=== PATIENT | male | born 1975 | race Caucasian/White ===

== ENCOUNTER 2019-07-29 18:00 | Inpatient (IN) | payer MEDICAID ==
[2019-07-29] MEDS ORDERED: MVI, Adult with Vitamin K 10 ML, Thiamine 100 MG, Folic Acid 1 MG in Lactated Ringers 1... IV ONE ×4 (18:43)
[2019-07-29] MEDS ORDERED: LORazepam 2 MG/ML Syringe IVPUSH ONE ×2 (18:43→19:58)
[2019-07-29] MEDS ORDERED: Ondansetron 4 MG/2 ML SDV IV ONE (18:43)
[2019-07-29 19:19] LABS: ANION GAP 17.4; CHLORIDE,CL 101 mmol/L (101-111); SODIUM,NA 139 mmol/L (135-145)
[2019-07-29 19:21] LABS: ACETAMINOPHEN < 10.0 ug/mL
[2019-07-29] MEDS: Sodium Chloride 0.9% 10 ML Syringe FLUSH PRN (19:24)
--- NOTE | 2019-07-29 19:53 | EDM.PDOC ---
ED HPI GENERAL MEDICAL PROBLEM - General Chief Complaint: Drug or Alcohol Abuse Stated Complaint: DETOX Time Seen by Provider: 07/29/19 19:35 Source of Information: Reports: Patient History Limitations: Reports: No Limitations - History of Present Illness INITIAL COMMENTS - FREE TEXT/NARRATIVE: This 44 yo male patient reports to the ED due to drinking 1/2 liter of Vodka for the past month plus. The patient reports he did talk to his property disposal officer regarding his drinking problem and was sent to the ED. The patient reports he would like help with stopping and would like to go to treatment. The patient reports he has increased anxiety at this time. The patient was given 1 mg of Ativan prior to assessment. The patient reports he has increased blood pressure while he goes through withdrawal. The patient reports he took a large drink of Vodka on the way to the ED. The patient reports he had not had a drink for about 12 hours prior to that. The patient reports he has not had any food for the past 48 hours. The patient was seen in [place] last month with similar symptoms, but did not follow-up with treatment or take his medications after discharge. Onset: Unknown/Unsure Duration: Constant Location: Reports: Generalized Quality: Reports: Other Severity: Moderate Improves with: Reports: None Worsens with: Reports: None Context: Reports: Other Associated Symptoms: Reports: No Other Symptoms - Related Data Allergies Allergy/AdvReac Type Severity Reaction Status Date / Time codeine Allergy Rash Verified 07/29/19 18:25 naproxen sodium [From Aleve] Allergy Airway Verified 07/29/19 18:25 Tightness Home Meds: Home Meds Metoprolol Succinate 100 mg PO DAILY 07/29/19 [History] Past Medical History Other HEENT History: blind in right eye Cardiovascular History: Reports: Hypertension Other Musculoskeletal History: right hand, both knees, - Past Surgical History Musculoskeletal Surgical History: Reports: Arthroscopic Knee, Other (See Below) Other Musculoskeletal Surgeries/Procedures:: back surgery Social & Family History - Family History Family Medical History: Noncontributory - Tobacco Use Smoking Status *Q: Current Every Day Smoker Years of Tobacco use: 30 Packs/Tins Daily: 0.5 Used Tobacco, but Quit: No Second Hand Smoke Exposure: Yes - Caffeine Use Caffeine Use: Reports: None - Recreational Drug Use Recreational Drug Use: No ED ROS GENERAL - Review of Systems Review Of Systems: ROS reveals no pertinent complaints other than HPI. ED EXAM, GENERAL - Physical Exam Exam: See Below Exam Limited By: No Limitations General Appearance: Alert, WD/WN, Moderate Distress Eye Exam: Bilateral Eye: EOMI, Normal Inspection, PERRL Ears: Normal External Exam, Normal Canal, Hearing Grossly Normal, Normal TMs Nose: Normal Inspection, Normal Mucosa, No Blood Throat/Mouth: Normal Inspection, Normal Lips, Normal Teeth, Normal Gums, Normal Oropharynx, Normal Voice, No Airway Compromise Head: Atraumatic, Normocephalic Neck: Normal Inspection, Supple, Non-Tender, Full Range of Motion Cardiovascular: Normal Peripheral Pulses, Regular Rate, Rhythm, No Edema, No Gallop, No JVD, No Murmur, No Rub GI/Abdominal: Normal Bowel Sounds, Soft, Non-Tender, No Organomegaly, No Distention, No Abnormal Bruit, No Mass (Male) Exam: Deferred Rectal (Males) Exam: Deferred Back Exam: Normal Inspection, Full Range of Motion, NT Extremities: Normal Inspection, Normal Range of Motion, Non-Tender, Normal Capillary Refill, No Pedal Edema Neurological: Alert, Oriented, CN II-XII Intact, Normal Cognition, Normal Gait, Normal Reflexes, No Motor/Sensory Deficits Psychiatric: Normal Affect, Normal Mood Skin Exam: Warm, Dry, Intact, Normal Color, No Rash Lymphatic: No Adenopathy Course - Vital Signs Last Recorded V/S: Last Vital Signs Temp 37.2 C 07/29/19 18:08 Pulse 120 H 07/29/19 18:08 Resp 18 07/29/19 18:08 BP 176/113 H 07/29/19 18:08 Pulse Ox 94 L 07/29/19 18:08 - Orders/Labs/Meds Orders: Active Orders 24 hr Category Date Time Status Peripheral IV Care [RC] . DIRECTED Care 07/29/19 18:43 Active Sodium Chloride 0.9% [Saline Flush] Med 07/29/19 18:42 Active 10 ml FLUSH ASDIRECTED PRN Peripheral IV Insertion Adult [OM.PC] Stat Oth 07/29/19 18:42 Ordered Medication Orders Sodium Chloride (Saline Flush) 10 ml FLUSH ASDIRECTED PRN PRN Reason: Keep Vein Open Last Admin: 07/29/19 19:24 Dose: 10 ml Labs: Laboratory Tests 07/29/19 07/29/19 07/29/19 Range/Units 18:52 18:52 18:52 WBC 6.6 (5.0-10.0) 10^3/uL RBC 4.65 (4.6-6.2) 10^6/uL Hgb 15.6 (14.0-18.0) g/dL Hct 44.7 (40.0-54.0) % MCV 96.1 (80-100) fL MCH 33.5 (27.0-34.0) pg MCHC 34.9 (33.0-35.0) g/dL Plt Count 214 (150-450) 10^3/uL Neut % (Auto) 54.2 (42.2-75.2) % Lymph % (Auto) 37.0 (20.5-50.1) % [place] % (Auto) 7.7 (2-8) % Eos % (Auto) 0.8 L (1.0-3.0) % Baso % (Auto) 0.3 (0.0-1.0) % Sodium 139 (135-145) mmol/L Potassium 3.4 L (3.6-5.0) mmol/L Chloride 101 (101-111) mmol/L Carbon Dioxide 24.0 (21.0-31.0) mmol/L Anion Gap 17.4 BUN 18 (7-18) mg/dL Creatinine 0.7 (0.6-1.3) mg/dL Est Cr Clr Drug Dosing TNP Estimated GFR (MDRD) > 60 BUN/Creatinine Ratio 25.71 Glucose 99 (74-105) mg/dL Calcium 8.4 (8.4-10.2) mg/dl Magnesium 2.0 (1.8-2.5) mg/dL Total Bilirubin 0.7 (0.2-1.0) mg/dL AST 121 H (10-42) IU/L ALT 77 H (10-60) IU/L Alkaline Phosphatase 91 (42-121) IU/L Total Protein 8.1 (6.7-8.2) g/dl Albumin 4.3 (3.2-5.5) g/dl Globulin 3.8 Albumin/Globulin Ratio 1.13 TSH, Ultra Sensitive 2.13 (0.45-5.33) uIu/mL Urine Color (YELLOW) Urine Appearance (CLEAR) Urine pH (5.0-9.0) Ur Specific [place] (1.005-1.030) Urine Protein (NEGATIVE) Urine Glucose (UA) (NEGATIVE) Urine Ketones (NEGATIVE) Urine Occult Blood (NEGATIVE) Urine Nitrite (NEGATIVE) Urine Bilirubin (NEGATIVE) Urine Urobilinogen (0.2-1.0) mg/dL Ur Leukocyte Esterase (NEGATIVE) Urine RBC /HPF Urine WBC (0-5/HPF) /HPF Ur Epithelial Cells (NOT SEEN) /HPF Urine Bacteria (0-FEW/HPF) /HPF Salicylates < 4.0 mg/dL Urine Opiates Screen (NEGATIVE) Ur Oxycodone Screen (NEGATIVE) Urine Methadone Screen (NEGATIVE) Acetaminophen < 10.0 ug/mL Ur Barbiturates Screen (NEGATIVE) U Tricyclic Antidepress (NEGATIVE) Ur Phencyclidine Scrn (NEGATIVE) Ur Amphetamine Screen (NEGATIVE) U Methamphetamines Scrn (NEGATIVE) Urine MDMA Screen (NEGATIVE) U Benzodiazepines Scrn (NEGATIVE) Urine Cocaine Screen (NEGATIVE) U Marijuana (THC) Screen (NEGATIVE) Ethyl Alcohol 412 mg/dL 07/29/19 07/29/19 Range/Units 19:19 19:19 WBC (5.0-10.0) 10^3/uL RBC (4.6-6.2) 10^6/uL Hgb (14.0-18.0) g/dL Hct (40.0-54.0) % MCV (80-100) fL MCH (27.0-34.0) pg MCHC (33.0-35.0) g/dL Plt Count (150-450) 10^3/uL Neut % (Auto) (42.2-75.2) % Lymph % (Auto) (20.5-50.1) % [place] % (Auto) (2-8) % Eos % (Auto) (1.0-3.0) % Baso % (Auto) (0.0-1.0) % Sodium (135-145) mmol/L Potassium (3.6-5.0) mmol/L Chloride (101-111) mmol/L Carbon Dioxide (21.0-31.0) mmol/L Anion Gap BUN (7-18) mg/dL Creatinine (0.6-1.3) mg/dL Est Cr Clr Drug Dosing Estimated GFR (MDRD) BUN/Creatinine Ratio Glucose (74-105) mg/dL Calcium (8.4-10.2) mg/dl Magnesium (1.8-2.5) mg/dL Total Bilirubin (0.2-1.0) mg/dL AST (10-42) IU/L ALT (10-60) IU/L Alkaline Phosphatase (42-121) IU/L Total Protein (6.7-8.2) g/dl Albumin (3.2-5.5) g/dl Globulin Albumin/Globulin Ratio TSH, Ultra Sensitive (0.45-5.33) uIu/mL Urine Color Yellow (YELLOW) Urine Appearance Clear (CLEAR) Urine pH 5.5 (5.0-9.0) Ur Specific [place] 1.025 (1.005-1.030) Urine Protein 30 H (NEGATIVE) Urine Glucose (UA) Negative (NEGATIVE) Urine Ketones Trace H (NEGATIVE) Urine Occult Blood Trace-intact H (NEGATIVE) Urine Nitrite Negative (NEGATIVE) Urine Bilirubin Negative (NEGATIVE) Urine Urobilinogen 0.2 (0.2-1.0) mg/dL Ur Leukocyte Esterase Negative (NEGATIVE) Urine RBC 0-5 /HPF Urine WBC 0-5 (0-5/HPF) /HPF Ur Epithelial Cells Few (NOT SEEN) /HPF Urine Bacteria Rare (0-FEW/HPF) /HPF Salicylates mg/dL Urine Opiates Screen Negative (NEGATIVE) Ur Oxycodone Screen Negative (NEGATIVE) Urine Methadone Screen Negative (NEGATIVE) Acetaminophen ug/mL Ur Barbiturates Screen Negative (NEGATIVE) U Tricyclic Antidepress Negative (NEGATIVE) Ur Phencyclidine Scrn Negative (NEGATIVE) Ur Amphetamine Screen Negative (NEGATIVE) U Methamphetamines Scrn Positive H (NEGATIVE) Urine MDMA Screen Negative (NEGATIVE) U Benzodiazepines Scrn Negative (NEGATIVE) Urine Cocaine Screen Negative (NEGATIVE) U Marijuana (THC) Screen Negative (NEGATIVE) Ethyl Alcohol mg/dL Meds: Medications Generic Name Dose Route Start Last Admin Trade Name Freq PRN Reason Stop Dose Admin Sodium Chloride 10 ml 07/29/19 18:42 07/29/19 19:24 Saline Flush FLUSH 10 ml ASDIRECTED PRN Administration Keep Vein Open Discontinued Medications Generic Name Dose Route Start Last Admin Trade Name Freq PRN Reason Stop Dose Admin Multivitamins/Minerals 10 ml/ 1,011.2 mls @ 999 mls/hr 07/29/19 18:43 19:23 Thiamine HCl 100 mg/ Folic IV 07/29/19 19:43 999 mls/hr Acid 1 mg/ Lactated Ringer's .BOLUS ONE Administration Lorazepam 2 mg 07/29/19 18:43 07/29/19 19:16 Ativan IVPUSH 07/29/19 18:44 2 mg ONETIME ONE Administration Lorazepam 1 mg 07/29/19 19:58 Ativan IVPUSH 07/29/19 19:59 ONETIME ONE Ondansetron HCl 4 mg 07/29/19 18:43 07/29/19 19:09 Zofran IV 07/29/19 18:44 4 mg ONETIME ONE Administration Departure - Departure Time of Disposition: 20:03 Disposition: Admitted As Inpatient 66 Condition: Fair Clinical Impression: Drug abuse, Alcohol abuse, Uncontrolled hypertension - Discharge Information *PRESCRIPTION DRUG MONITORING PROGRAM REVIEWED*: Not Applicable *COPY OF PRESCRIPTION DRUG MONITORING REPORT IN PATIENT RODRIGUE: Not Applicable Care Plan Goals: Discussed the patient's history, examination, lab results and treatments with Dr. Gupta. Dr. Gupta accepted the patient for an acute admission to [facility] in [place].
[2019-07-29] MEDS ORDERED: Ondansetron 4 MG Tab.DIS PO PRN (20:48)
[2019-07-29] MEDS ORDERED: Potassium Chloride 10 MEQ Tab.ER PO ONE (20:53)
[2019-07-29] MEDS: LORazepam 2 MG/ML Syringe IVPUSH PRN (21:40)
[2019-07-29] MEDS: Sodium Chloride 0.9% 1,000 ML IV SCH (21:40)
[2019-07-29] MEDS: Thiamine 100 MG Tab PO SCH (21:45)
[2019-07-29] MEDS: Metoprolol Succinate 50 MG Tab.ER PO SCH (21:46)
[2019-07-29] MEDS: Pantoprazole 40 MG Tab.CR PO SCH (21:46)
[2019-07-29] MEDS: Multivitamins, Therapeutic with Minerals Tab PO SCH (21:46)
[2019-07-30] MEDS: LORazepam 2 MG/ML Syringe IVPUSH PRN ×9 (01:05→23:07)
--- NOTE | 2019-07-30 02:50 | HP ---
CHIEF COMPLAINT: I have been drinking a lot. HISTORY OF PRESENT ILLNESS: The patient is a 44-year-old male who was admitted through the emergency room because he has been drinking half liter of vodka for the last couple of months and he did talk to his chief diversity officer regarding his drinking and was sent to the emergency room. In the emergency room, he was evaluated. His alcohol level is 412. The patient mentioned that he is just scared about the withdrawal because his blood pressure goes up and he gets anxious when this happens. In the emergency room, he was given 1 mg of Ativan prior to assessment. He had some lab workup done, which showed elevated liver function tests and blood pressure was also elevated and alcohol level is 412 and urine tox screen showed which is positive for methamphetamine. Because of the above, he was then admitted for further evaluation and management. PAST MEDICAL HISTORY: Remarkable for alcohol abuse and alcoholism. He even admitted that he had history of seizure from withdrawal from alcohol in the past. FAMILY HISTORY: Noncontributory. SOCIAL HISTORY: The patient is a smoker about half pack per day for the last 30 years. Drinks alcohol regularly. REVIEW OF SYSTEMS: The patient complained of some mild headache, but it has gotten better, but the patient denies any fever, chills, chest pain, shortness of breath, abdominal pain, or any other complaints. ALLERGIES: Codeine and naproxen sodium. HOME MEDICATIONS: None. PHYSICAL EXAMINATION: General: The patient is alert and oriented, very pleasant, not in any acute distress. Vital Signs: Blood pressure is 176/113, pulse of 120, respiration of 18, temperature is 37.2. HEENT: Normocephalic. There are pink palpebral conjunctivae. Sclerae anicteric. No C-spine tenderness. There is some infraorbital ecchymosis on the right eye. Neck: Supple. Heart: Regular rate and rhythm. Slightly tachycardic. No rubs. No gallops. Lungs: Have diminished breath sounds on both bases, but no significant crackles. No wheezing. Abdomen: Soft. There is mild direct tenderness on the epigastric area. No rebound. Bowel sounds positive. Extremities: Negative for any gross deformities. No pedal edema. No calf tenderness. Neurologic: Negative for any lateralizing signs. LABORATORY WORKUP: CBC: WBC 6.6, hemoglobin is 15.6, hematocrit is 44.7, platelet is 212. Comp panel: Potassium is 3.4. The rest of the panel unremarkable. AST is 121, ALT is 77. The rest of the panel unremarkable. Magnesium level is 2 which is within normal limits. Urine tox screen is positive for methamphetamine. Blood alcohol level is 412. ADMITTING DIAGNOSES: 1. Alcohol intoxication/alcoholism. 2. Hypertension. 3. Hypokalemia. 4. History of seizure from alcohol withdrawal. TREATMENT PLAN: The patient is going to be admitted to General Medicine floor. He will be on DVT prophylaxis. He will be on IV fluids and potassium will be repleted. [facility] will be [facility] tomorrow for evaluation and for arrangement to a treatment facility once he stabilized. [facility] /[id number]
[2019-07-30] MEDS: Acetaminophen 325 MG Tab PO PRN (03:08)
[2019-07-30] MEDS: Sodium Chloride 0.9% 1,000 ML IV SCH ×3 (05:42→22:09)
[2019-07-30 07:14] LABS: ANION GAP 13.7; CHLORIDE,CL 100 mmol/L (101-111); SODIUM,NA 136 mmol/L (135-145)
[2019-07-30] MEDS: Folic Acid 1 MG Tab PO SCH (08:40)
[2019-07-30] MEDS: Metoprolol Succinate 50 MG Tab.ER PO SCH (08:40)
[2019-07-30] MEDS: Nicotine 14 MG/24 Hr Patch TRDERM SCH (08:41)
--- NOTE | 2019-07-30 12:53 | PN ---
DATE: 07/30/2019 SUBJECTIVE: The patient this morning is sleeping. He looks comfortable and there are no concerns noted from the nursing staff. The patient denies any chest pain or shortness of breath or abdominal pain. OBJECTIVE: Vital Signs: Blood pressure is 154/104, pulse of 78, respirations 20, temperature of 97.6. Heart: Regular rate and rhythm. Normal S1 and S2. No gallops. No rubs. Lungs: Equal bilaterally. No crackles. No wheezing. Abdomen: Soft, nontender. Bowel sounds positive. Extremities: Negative for any calf tenderness. No pedal edema. LABORATORY DATA: Lab workup this morning. CBC: WBC 5.5, hemoglobin is 13.9, hematocrit is 40.4, platelets are 179. Comp panel: Potassium is 3.7, which is now within normal limits, and calcium is 8.2. AST is 93, ALT 66 (improving). PLAN: We will continue with his present management and continue with DVT prophylaxis and [facility] will be called today regarding his alcoholism and possible transfer to a treatment center for alcohol. [facility] /[id number]
[2019-07-30] MEDS: cloNIDine 0.1 MG Tab PO SCH ×2 (13:48→20:50)
[2019-07-30] MEDS: Thiamine 100 MG Tab PO SCH (20:52)
[2019-07-30] MEDS: Multivitamins, Therapeutic with Minerals Tab PO SCH (20:52)
[2019-07-30] MEDS: Pantoprazole 40 MG Tab.CR PO SCH (20:52)
[2019-07-30] MEDS ORDERED: Metoprolol Succinate 50 MG Tab.ER PO ONE (23:22)
[2019-07-31] MEDS: LORazepam 2 MG/ML Syringe IVPUSH PRN ×11 (01:35→23:20)
[2019-07-31] MEDS: Sodium Chloride 0.9% 1,000 ML IV SCH ×3 (06:03→22:56)
[2019-07-31] MEDS: Metoprolol Succinate 50 MG Tab.ER PO SCH (08:08)
[2019-07-31] MEDS: cloNIDine 0.1 MG Tab PO SCH ×2 (08:09→21:17)
[2019-07-31] MEDS: Acetaminophen 325 MG Tab PO PRN ×2 (08:09→21:18)
[2019-07-31] MEDS: Nicotine 14 MG/24 Hr Patch TRDERM SCH (08:12)
[2019-07-31] MEDS: Folic Acid 1 MG Tab PO SCH (08:13)
[2019-07-31] MEDS ORDERED: cloNIDine 0.1 MG Tab PO ONE (11:30)
--- NOTE | 2019-07-31 11:50 | PN ---
DATE: 07/31/2019 SUBJECTIVE: The patient is doing fairly well except that blood pressure is still running moderately elevated, and we have been adjusting his blood pressure medication. We increased his Toprol-XL to 200 mg a day and also started him on clonidine 0.1 mg p.o. b.i.d. The patient denies any headache, chest pain, shortness of breath, abdominal pain, or any other complaints. OBJECTIVE: Vital Signs: Blood pressure is 152/100, pulse 71, respirations 16, and temperature of 97.9. Heart: Regular rate and rhythm. Normal S1 and S2. No gallops. No rubs. Lungs: Equal bilaterally. No crackles. No wheezing. Abdomen: Soft and nontender. Bowel sounds positive. Extremities: Negative for any pedal edema. No calf tenderness. Neurologic: Nonfocal. PLAN: We will continue with his present management. I am going to increase his clonidine to 0.2 mg b.i.d. and continue same dose of Toprol-XL. We are still awaiting input from [facility]. [facility] /[id number]
[2019-07-31] MEDS: Sodium Chloride 0.9% 10 ML Syringe FLUSH PRN (11:59)
[2019-07-31] MEDS: Pantoprazole 40 MG Tab.CR PO SCH (21:17)
[2019-07-31] MEDS: Thiamine 100 MG Tab PO SCH (21:18)
[2019-07-31] MEDS: Multivitamins, Therapeutic with Minerals Tab PO SCH (21:18)
[2019-08-01] MEDS: LORazepam 2 MG/ML Syringe IVPUSH PRN ×5 (00:18→08:27)
[2019-08-01] MEDS: Sodium Chloride 0.9% 1,000 ML IV SCH (06:53)
[2019-08-01] MEDS: cloNIDine 0.1 MG Tab PO SCH ×2 (08:33→20:01)
[2019-08-01] MEDS: Folic Acid 1 MG Tab PO SCH (08:33)
[2019-08-01] MEDS: Metoprolol Succinate 50 MG Tab.ER PO SCH (08:34)
[2019-08-01] MEDS: Nicotine 14 MG/24 Hr Patch TRDERM SCH (08:36)
[2019-08-01] MEDS: LORazepam 1 MG Tab PO PRN ×6 (10:56→23:13)
--- NOTE | 2019-08-01 13:18 | PN ---
DATE: 08/01/2019 SUBJECTIVE: The patient this morning is doing fairly well, although his CIWA score is still elevated, but the patient denies any headache, chest pain, shortness of breath, abdominal pain, or any other complaints and blood pressure has improved. OBJECTIVE: Vital Signs: Blood pressure is 146/81, pulse of 76, respiration of 18, and temperature of 96.8. Heart: Regular rate and rhythm. Normal S1 and S2. No gallops. No rubs. Lungs: Equal bilaterally. No crackles, no wheezing. Abdomen: Soft, nontender. Bowel sounds positive. Extremities: Negative for any pedal edema. No calf tenderness. PLAN: We will continue with his present management, and we will discontinue his IV fluids, and once the treatment center is ready for him, we will discharge him any time. [facility] /[id number]
[2019-08-01] MEDS: Pantoprazole 40 MG Tab.CR PO SCH (20:01)
[2019-08-01] MEDS: Multivitamins, Therapeutic with Minerals Tab PO SCH (20:01)
[2019-08-01] MEDS: Thiamine 100 MG Tab PO SCH (20:01)
[2019-08-02] MEDS: LORazepam 1 MG Tab PO PRN ×3 (02:12→08:54)
[2019-08-02] MEDS: Metoprolol Succinate 50 MG Tab.ER PO SCH (08:53)
[2019-08-02] MEDS: Folic Acid 1 MG Tab PO SCH (08:54)
[2019-08-02] MEDS: cloNIDine 0.1 MG Tab PO SCH (08:54)
--- NOTE | 2019-08-02 11:46 | PCM.DCSUM1 ---
Discharge Summary - Hospital Course Free Text/Narrative:: This is a 44 y/O M with history of Alcohol use and Hypertension and seizure disorder form alcohol withdrawn in the past, he was admitted with acute alcohol intoxication, his alcohol level was 412 and his urine tox screen also positive for Methamphetamine. He was admitted to prevent from alcohol withdrawal symptom. He is agreed to to to alcohol rehab at [place] and will be transferred today. In hospital he was placed on CIWA protocol and received Ativan as per protocol. He is doing well and he is ready to go to [place] for alcohol rehab. He feels good today, has no nausea or vomiting and tolerating diet . - Discharge Data Discharge Date: 08/02/19 Discharge Disposition: DC/Tfer to Other 70 Condition: Fair - Referral to Home Health Primary Care Physician: PCP Unobtainable - Patient Summary/Data Consults: Consultations 07/29/19 21:00 Consult to Case Management/Screener Perfumer [CONS] Routine - Patient Instructions Diet: Usual Diet as Tolerated Activity: As Tolerated Driving: May Drive Today Showering/Bathing: May Shower Notify Provider of: Fever - Discharge Plan *PRESCRIPTION DRUG MONITORING PROGRAM REVIEWED*: Not Applicable *COPY OF PRESCRIPTION DRUG MONITORING REPORT IN PATIENT RODRIGUE: Not Applicable Prescriptions/Med Rec: cloNIDine [Catapres] 0.2 mg PO BID #10 tablet Metoprolol Succinate [Toprol XL 50mg] 200 mg PO DAILY #20 tab.er Home Medications: Home Meds Folic Acid 1 mg PO DAILY tablet 08/02/19 [Rx] Metoprolol Succinate [Toprol XL 50mg] 200 mg PO DAILY #20 tab.er 08/02/19 [Rx] Multivitamins/Minerals [Vitamins and Minerals] 1 tab PO BEDTIME tablet [Rx] Nicotine [Habitrol] 14 mg TRDERM DAILY patch 08/02/19 [Rx] Ondansetron [Zofran ODT] 4 mg PO Q4H PRN tab.dis 08/02/19 [Rx] Pantoprazole [ProTONIX] 40 mg PO BEDTIME tab.cr 08/02/19 [Rx] Thiamine [Vitamin B-1] 100 mg PO BEDTIME tablet 08/02/19 [Rx] cloNIDine [Catapres] 0.2 mg PO BID #10 tablet 08/02/19 [Rx] Oxygen Therapy Mode: Room Air Patient Handouts: Alcohol Use Disorder, Hypertension Referrals: PCP,Unobtain [Primary Care Provider] - - Discharge Summary/Plan Comment DC Time >30 min.: Yes Discharge Summary/Plan Comment: This is a 44 y/O M with history of Alcoholism was admitted with severe acute intoxication with alcohol Impression and Plan: 1. Acute severe intoxication with Alcohol: -Pt has history of drinking alcohol and admitted with alcohol level of 142 -He doing well now and will be transferred today to [place] for Alcohol Rehab - General Info Date of Service: 08/02/19 Admission Dx/Problem (Free Text: Pt was seen in room doing well, No more nausea, vomiting, confusion, appetite is good and will be discharge to [place] for alcohol rehab Functional Status: Reports: Pain Controlled, Tolerating Diet, Ambulating, Urinating - Review of Systems General: Reports: Appetite (acceptable). Denies: Fever, Weakness, Chills HEENT: Denies: Eye Pain, Sinus Congestion, Visual Changes Pulmonary: Denies: Shortness of Breath, Pleuritic Chest Pain, Cough, Sputum, Wheezing Cardiovascular: Denies: Chest Pain, Dyspnea on Exertion, Edema Gastrointestinal: Denies: Abdominal Pain, Diarrhea, Nausea, Vomiting Genitourinary: Denies: Dysuria, Burning, Urgency, Flank Pain Musculoskeletal: Denies: Neck Pain, Shoulder Pain, Hand Pain Skin: Denies: Cyanosis, Jaundice, Bruising, Pruritis Neurological: Denies: Confusion, Dizziness, Seizure, Tingling, Tremors Psychiatric: Reports: No Symptoms - Patient Data Vitals - Most Recent: Last Vital Signs Temp 36.2 C 08/02/19 07:00 Pulse 67 08/02/19 08:53 Resp 18 08/02/19 07:00 BP 137/102 H 08/02/19 08:54 Pulse Ox 99 08/02/19 07:00 Weight - Most Recent: 79.016 kg I&O - Last 24 hours: Intake & Output 08/01/19 08/02/19 08/02/19 22:59 06:59 14:59 Intake Total 300 800 Balance 300 800 Med Orders - Current: Current Medications Acetaminophen (Tylenol) 650 mg PO Q4H PRN PRN Reason: Pain (Mild 1-3)/fever Last Admin: 07/31/19 21:18 Dose: 650 mg Clonidine HCl (Catapres) 0.2 mg PO BID [facility] Last Admin: 08/02/19 08:54 Dose: 0.2 mg Folic Acid (Folic Acid) 1 mg PO DAILY [facility] Last Admin: 08/02/19 08:54 Dose: 1 mg Lorazepam (Ativan) 0 mg IVPUSH TITRATE PRN; Protocol PRN Reason: Withdrawal Symptoms Last Admin: 08/01/19 08:27 Dose: 2 mg Lorazepam (Ativan) 0 mg PO TITRATE PRN; Protocol PRN Reason: Withdrawal Symptoms Last Admin: 08/02/19 08:54 Dose: 2 mg Metoprolol Succinate (Toprol Xl) 200 mg PO DAILY [facility] Last Admin: 08/02/19 08:53 Dose: 200 mg Miscellaneous Information (Remove Patch) 1 ea TRDERM DAILY [facility] Last Admin: 08/01/19 08:35 Dose: 1 ea Multivitamins/Minerals (Vitamins And Minerals) 1 tab PO BEDTIME [facility] Last Admin: 08/01/19 20:01 Dose: 1 tab Nicotine (Habitrol) 14 mg TRDERM DAILY [facility] Last Admin: 08/01/19 08:36 Dose: 14 mg Ondansetron HCl (Zofran Odt) 4 mg PO Q4H PRN PRN Reason: nausea, able to take PO Last Admin: 07/31/19 08:13 Dose: 4 mg Pantoprazole Sodium (Protonix) 40 mg PO BEDTIME [facility] Last Admin: 08/01/19 20:01 Dose: 40 mg Sodium Chloride (Saline Flush) 10 ml FLUSH ASDIRECTED PRN PRN Reason: Keep Vein Open Last Admin: 07/31/19 11:59 Dose: 10 ml Thiamine HCl (Vitamin B-1) 100 mg PO BEDTIME [facility] Last Admin: 08/01/19 20:01 Dose: 100 mg Discontinued Medications Clonidine HCl (Catapres) 0.1 mg PO BID [facility] Last Admin: 07/31/19 08:09 Dose: 0.1 mg Clonidine HCl (Catapres) 0.1 mg PO ONETIME ONE Stop: 07/31/19 11:31 Last Admin: 07/31/19 11:31 Dose: 0.1 mg Multivitamins/Minerals 10 ml/Thiamine HCl 100 mg/ Folic Acid 1 mg/ Lactated Ringer's 1,011.2 mls @ 999 mls/hr IV .BOLUS ONE Stop: 07/29/19 19:43 Last Admin: 07/29/19 19:23 Dose: 999 mls/hr Sodium Chloride (Normal Saline) 1,000 mls @ 125 mls/hr IV ASDIRECTED [facility] Last Infusion: 08/01/19 14:22 Dose: 125 mls/hr Lorazepam (Ativan) 2 mg IVPUSH ONETIME ONE Stop: 07/29/19 18:44 Last Admin: 07/29/19 19:16 Dose: 2 mg Lorazepam (Ativan) 1 mg IVPUSH ONETIME ONE Stop: 07/29/19 19:59 Last Admin: 07/29/19 20:04 Dose: 1 mg Metoprolol Succinate (Toprol Xl) 100 mg PO DAILY [facility] Last Admin: 07/30/19 08:40 Dose: 100 mg Metoprolol Succinate (Toprol Xl) 100 mg PO ONETIME ONE Stop: 07/30/19 23:23 Last Admin: 07/30/19 23:39 Dose: 100 mg Ondansetron HCl (Zofran) 4 mg IV ONETIME ONE Stop: 07/29/19 18:44 Last Admin: 07/29/19 19:09 Dose: 4 mg Potassium Chloride (Klor-Con 10) 40 meq PO ONETIME ONE Stop: 07/29/19 20:54 Last Admin: 07/29/19 21:45 Dose: 40 meq - Exam Quality Assessment: Reports: DVT Prophylaxis. Denies: Supplemental Oxygen, Urine Catheter General: Reports: Alert, Oriented, Cooperative, No Acute Distress HEENT: Reports: Pupils Equal, Pupils Reactive, EOMI, Mucous Membr. Moist/[place] Neck: Reports: Supple, No JVD, No Thyromegaly Lungs: Reports: Clear to Auscultation, Normal Respiratory Effort Cardiovascular: Reports: Regular Rate, Regular Rhythm, No Murmurs GI/Abdominal Exam: Normal Bowel Sounds, Soft, Non-Tender, No Organomegaly. No: Guarding, Rigid, Rebound (Male) Exam: Deferred Rectal (Males) Exam: Deferred Back Exam: Reports: Normal Inspection, Full Range of Motion Extremities: Normal Inspection, Normal Range of Motion, Non-Tender, No Pedal Edema Skin: Reports: Warm, Dry, Intact Neurological: Reports: No New Focal Deficit Psy/Mental Status: Reports: Alert, Normal Affect, Normal Mood
[2019-08-02 12:16] VITALS: BP 145/102; PULSE 80
[2019-08-02] MEDS: Nicotine 14 MG/24 Hr Patch TRDERM SCH (12:24)
== END 2019-08-02 14:00 | disposition other institution (70) | DRG 897 ==
LOC: DL.ED 18:00 → DL.MS 20:00 → DL.ED 20:20
PROVIDERS: ADMIT Internal Medicine; ATTEND Internal Medicine
PROC: HZ2ZZZZ Detoxification Services for Substance Abuse Treatment (ICD-10-PCS; principal; 2019-07-29)
DX: F10.120 Alcohol abuse with intoxication, uncomplicated (principal); I10 Essential (primary) hypertension; E87.6 Hypokalemia; F17.210 Nicotine dependence, cigarettes, uncomplicated; F41.9 Anxiety disorder, unspecified; Z88.5 Allergy status to narcotic agent; Z79.899 Other long term (current) drug therapy; Z88.8 Allergy status to other drugs, medicaments and biological substances
CPT/HCPCS: 36415; 80053; 80305-QW; 81001; 83735; 84443; 85025; 96365; 96375; 99284-25; A9270-GY; G0480; J2060; J2405; J3411; J3490; J7030; J7120